=== PATIENT | female | born 1985 | race Caucasian/White ===

== ENCOUNTER 2019-01-14 23:54 | Emergency (ER) | payer OTHER ==
[~2019-01-14] VITALS: Wt 61.4 kg
[~2019-01-14 23:54] MED LIST: Ibuprofen PO; PREN1TAB49
--- NOTE | 2019-01-15 03:03 | ERD ---
ER Documentation Chief Complaint Chief Complaint VAG BLEED LAST NIGHT; 14 WEEKS PG HPI 33-year-old female presents with vaginal spotting for the last half day. She is approximately 14 weeks by dates. She denies pain, dysuria, fevers, vomiting. She is a G4 para 3. She is uncertain of her blood type. ROS All systems reviewed and are negative except as per history of present illness. Medications Home Meds Active Scripts [Ibuprofen] 600 MG TAB No Conflict Check, 600 MG PO Q6, #20 TAB 0 Refills Prov:CHARLENE ROCHE MD 10/07/15 Reported Medications Vits W-Ca,Fe,Fa(<1MG) () 1 Tab Tablet 07/22/10 Allergies Allergies: Coded Allergies: No Known Allergy (Verified , 10/06/15) PMhx/Soc Medical and Surgical Hx: pt denies Medical Hx, pt denies Surgical Hx Hx Alcohol Use: No Hx Substance Use: No Hx Tobacco Use: No Smoking Status: Never smoker FmHx Family History: No diabetes, No coronary disease, No other Physical Exam Vitals Vital Signs Date Temp Pulse Resp B/P (MAP) Pulse Ox O2 O2 Flow FiO2 Time Delivery Rate 01/14/19 97.0 101 18 128/85 99 23:58 (99) Physical Exam Const: No acute distress Head: Atraumatic Eyes: Normal Conjunctiva ENT: Normal External Ears, Nose and Mouth. Neck: Full range of motion. No meningismus. Resp: Clear to auscultation bilaterally Cardio: Regular rate and rhythm, no murmurs Abd: Soft, non tender, non distended. Normal bowel sounds Skin: No petechiae or rashes Back: No midline or flank tenderness Ext: No cyanosis, or edema Neur: Awake and alert Psych: Normal Mood and Affect Result Diagram: 01/15/19 0145 Results 24 hrs Laboratory Tests Test 01/15/19 01:45 White Blood Count 7.3 10^3/ul Red Blood Count 4.03 10^6/ul Hemoglobin 12.0 g/dl Hematocrit 35.5 % Mean Corpuscular Volume 88.1 fl Mean Corpuscular Hemoglobin 29.8 pg Mean Corpuscular Hemoglobin Concent 33.8 g/dl Red Cell Distribution Width 13.0 % Platelet Count 269 10^3/UL Mean Platelet Volume 10.3 fl Immature Granulocytes % 0.400 % Neutrophils % 59.5 % Lymphocytes % 25.1 % Monocytes % 8.4 % Eosinophils % 6.2 % Basophils % 0.4 % Nucleated Red Blood Cells % 0.0 /100WBC Immature Granulocytes # 0.030 10^3/ul Neutrophils # 4.3 10^3/ul Lymphocytes # 1.8 10^3/ul Monocytes # 0.6 10^3/ul Eosinophils # 0.5 10^3/ul Basophils # 0.0 10^3/ul Nucleated Red Blood Cells # 0.0 10^3/ul Urine Color YELLOW Urine Clarity SLIGHTLY CLOUDY Urine pH 6.0 Urine Specific [place] 1.016 Urine Ketones NEGATIVE mg/dL Urine Nitrite NEGATIVE mg/dL Urine Bilirubin NEGATIVE mg/dL Urine Urobilinogen NEGATIVE mg/dL Urine Leukocyte Esterase NEGATIVE Alex/ul Urine Microscopic RBC 1 /HPF Urine Microscopic WBC 1 /HPF Urine Bacteria FEW /HPF Urine Mucus FEW /HPF Urine Yeast (Budding) FEW /HPF Urine Hemoglobin NEGATIVE mg/dL Urine Glucose NEGATIVE mg/dL Urine Total Protein NEGATIVE mg/dl Procedures/MDM Patient is Rh+. Ultrasound shows normal-appearing approximately 13-week 6-day intrauterine with heart tones and no appreciable acute abnormalities. She has no acute abnormal findings. Patient stable and ambulatory throughout the ER course. Patient has no signs or symptoms to suggest surgical abdomen, ectopic , torsion, additional concerning signs or symptoms. She will discharged home with primary care follow-up and return precautions for fevers, vomiting, worsening pain, bleeding, new worsening symptoms. Departure Diagnosis: Primary Impression: Vaginal bleeding in patient at less than 20 weeks ges... Condition: Stable Patient Instructions: Bleeding During Early Additional Instructions: Examinations normal today. Recheck for fevers, vomiting worsening pain, blee ding, new or worsening symptoms with primary care doctor. JOELLEN FERRARA MD January 15, 2019 03:03
[2019-01-15 03:30] VITALS: BP 126/68; PULSE 100; RESP 18
== END 2019-01-15 03:32 | disposition home or self-care (01) ==
LOC: FTE 23:54
DX: O20.9 Hemorrhage in early pregnancy, unspecified (principal); Z3A.13 13 weeks gestation of pregnancy
CPT/HCPCS: 36415; 76801; 81001; 85025; 86900; 86901; Z7502; 81003

== ENCOUNTER 2019-06-27 13:06 | Outpatient (CLI) | payer OTHER ==
[~2019-06-27] VITALS: Ht 152.4 cm; Wt 67.3 kg
[~2019-06-27 13:06] MED LIST changes: +IBUP-1542 PO; -Ibuprofen PO
[2019-06-27 13:25] VITALS: BP 122/75; PULSE 104; RESP 18
[2019-06-27] MEDS: LACTATED RINGER'S 1,000 ML IV SCH ×2 (15:29→18:01)
== END 2019-06-27 18:59 | disposition home or self-care (01) ==
LOC: OBT 13:06 → L-D 13:06 → OBT 18:59
PROVIDERS: ATTEND Obstetrics & Gynecology
DX: O62.9 Abnormality of forces of labor, unspecified (principal); Z3A.37 37 weeks gestation of pregnancy
CPT/HCPCS: 36415; 76818; 96360; 96361; J7120